=== PATIENT | female | born 1935 | race Caucasian/White ===

== ENCOUNTER 2021-08-21 19:15 | Emergency (ER) | payer MEDICARE, OTHER, SELFPAY ==
[2021-08-21 19:32] VITALS: BP 175/59; PULSE 78; RESP 16; TEMP 36.7; O2SAT 99
[2021-08-21 19:40] VITALS: BP 175/59; PULSE 78; RESP 16; TEMP 36.7; O2SAT 99
--- NOTE | 2021-08-21 19:42 | ED.WOUNDLAC ---
HPI - Wound/Laceration General Chief Complaint: Wound/Laceration Stated Complaint: right 2nd toe infection Time Seen by Provider: 08/21/21 19:42 Source: patient Mode of arrival: ambulatory Limitations: no limitations History of Present Illness HPI narrative: 85-year-old female presented for complaint of right third toe wound. She states the tip of the toe under the nail has split due to dryness and fungal infection. No active bleeding. She states that tender to touch and feels swollen. She has applied Neosporin. Related Data Home Medications Medication Instructions Recorded Confirmed Adult Probiotic 08/21/21 Pepcid 08/21/21 Tylenol Arthritis 08/21/21 Vitamin B12 08/21/21 citalopram 40 mg tablet tablet 08/21/21 ipratropium 0.5 mg-albuterol 3 mg ml inhalation 08/21/21 (2.5 mg base)/3 mL nebulization soln meloxicam 7.5 mg tablet tablet 08/21/21 potassium 08/21/21 tizanidine 2 mg tablet tablet 08/21/21 Allergies Allergy/AdvReac Type Severity Reaction Status Date / Time Penicillins Allergy Anaphylaxis Verified 08/21/21 19:40 Review of Systems Review of Systems: CONSTITUTIONAL: Denies body aches, fever, chills, or sweats. RESPIRATORY: Denies cough or dyspnea. GASTROINTESTINAL: Denies abdominal pain, nausea, vomiting, or diarrhea. SKIN: open wound to toe MUSCULOSKELETAL: Denies back pain, joint pain, or myalgia. NEUROLOGIC: Denies headache, numbness, tingling, or weakness. PSYCH: Denies depression or anxiety. PMFSH Comments At time of signature, I have reviewed and agree with nursing past medical, surgical, social and family history unless otherwise noted. Please see nursing chart for further information. There is no relevant family history pertinent to the presenting complaint Exam Narrative: GENERAL: Well-appearing ENT: Mucous membranes moist. Oropharynx without edema, erythema or lesions. CHEST: Clear to auscultation. No respiratory distress. HEART: Regular rate and rhythm. SKIN: Warm, dry. Right 3rd toe distal aspect with fissure across under the nail, approx 0.5cm no active drainage, mild swelling; fungal infection under the toe nails, 4th toe with dry cracking skin distally under the nail NEURO: Alert and oriented x3. PSYCH: Normal mood and affect Course Course Emergency Course: Patient is aware of diagnosis, understands and agrees to treatment plan. Anticipatory guidance given. Patient agrees to follow-up as directed and is aware of reasons to seek care at the emergency department. Portions of this record may have been created with voice recognition software Level of Care: Express Care Visit Vital Signs Vital signs: Vital Signs Temperature 98.0 F 08/21/21 19:32 Pulse Rate 78 08/21/21 19:32 Respiratory Rate 16 08/21/21 19:32 Blood Pressure 175/59 H 08/21/21 19:32 Pulse Oximetry 99 08/21/21 19:32 Oxygen Delivery Room Air 08/21/21 19:32 Temperature 98.0 F 08/21/21 19:40 Pulse Rate 78 08/21/21 19:40 Respiratory Rate 16 08/21/21 19:40 Blood Pressure 175/59 H 08/21/21 19:40 Pulse Oximetry 99 08/21/21 19:40 Oxygen Delivery Room Air 08/21/21 19:40 Reviewed MDM - Wound/Laceration MDM Narrative Medical decision making narrative: Advised supportive treatment to protect the skin for further cracking and infection. Aware of s/s to monitor and return for worsening symptoms. 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 Differential Diagnosis Differential diagnosis: Likely laceration, abrasion and avulsion of skin Discharge Plan Discharge Clinical Impression: Fissure in skin of foot Patient Disposition: Home, Self-Care Condition: Stable Instructions: Antibiotic Form Additional Instructions: Keep the area clean and dry - cleanse with warm water and mild soap and allow to fully dry. Warm soapy water soak or Epson salt soak Ok to apply neosporin to the site Keep it covered with bandages Take a
== END 2021-08-21 20:11 | disposition home or self-care (01) ==
PROVIDERS: Emergency Provider Nurse Practitioner Family
DX: R23.4 Changes in skin texture (principal); J44.9 Chronic obstructive pulmonary disease, unspecified; K21.9 Gastro-esophageal reflux disease without esophagitis; M19.90 Unspecified osteoarthritis, unspecified site
CPT/HCPCS: 99203; G0463